=== PATIENT | male | born 1980 | race Caucasian/White ===

== ENCOUNTER 2022-07-25 17:57 | Outpatient (CLI) | payer MEDICAID | END 2022-07-25 17:58 | disposition EMS.NT | LOC: EMS 17:57 | DX: S01.21XA Laceration without foreign body of nose, initial encounter (principal); R04.0 Epistaxis; Y04.2XXA Assault by strike against or bumped into by another person, initial encounter; Y93.89 Activity, other specified; Y92.59 Other trade areas as the place of occurrence of the external cause ==

== ENCOUNTER 2022-07-26 16:04 | Emergency (ER) | payer MEDICAID ==
[2022-07-26 16:22] VITALS: BP 145/112
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
--- NOTE | 2022-07-26 17:25 | XRAY Report ---
PROCEDURE: Chest 1 View X-Ray INDICATIONS: right rib pain TECHNIQUE: One view of the chest was acquired. COMPARISON: None. FINDINGS: Surgical changes and devices: None. Lungs and pleura: No pleural effusions or pneumothorax. Lungs are clear. Mediastinum: Mediastinal contours appear normal. Heart size is normal. Bones and chest wall: No suspicious bony lesions. Overlying soft tissues appear unremarkable. IMPRESSION: Normal single view chest x-ray Reviewed by: Lowell Teresa MD on 07/26/2022 4:24 PM [facility] Approved by: Lowell Teresa MD on 07/26/2022 4:24 PM [facility] Station ID: [id number]
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
== END 2022-07-26 18:05 | disposition home or self-care (01) ==
LOC: ED 16:04
DX: S05.12XA Contusion of eyeball and orbital tissues, left eye, initial encounter (principal); S20.211A Contusion of right front wall of thorax, initial encounter; S02.2XXA Fracture of nasal bones, initial encounter for closed fracture; Y04.2XXA Assault by strike against or bumped into by another person, initial encounter
CPT/HCPCS: 99284

== ENCOUNTER 2023-11-12 10:25 | Outpatient (CLI) | payer MEDICAID ==
[2023-11-12 17:40] LABS: BASOPHILS # (AUTO) 0.1 10^3/uL (0.0-0.1); BASOPHILS % (AUTO) 0.7 %; EOSINOPHILS # (AUTO) 0.5 10^3/uL (0.0-0.7); EOSINOPHILS % (AUTO) 5.2 %; HCT - HEMATOCRIT 45.6 % (42.0-52.0); HGB - HEMOGLOBIN 15.7 g/dL (14.0-18.0); LYMPHOCYTES # (AUTO) 2.7 10^3/uL (1.5-3.5); MEAN CORPUSCULAR HEMOGLOBIN 32.3 pg (27.0-31.0); MEAN CORPUSCULAR HGB CONC 34.4 g/dL (32.0-36.0); MEAN CORPUSCULAR VOLUME 93.8 fL (80.0-94.0); MEAN PLATELET VOLUME 10.8 fL (7.4-11.4); MONOCYTES # (AUTO) 0.5 10^3/uL (0.0-1.0); MONOCYTES % (AUTO) 4.8 %; NEUTROPHILS # (AUTO) 5.8 10^3/uL (1.5-6.6); PLT - PLATELET COUNT 267 10^3/uL (130-450); RED BLOOD COUNT 4.86 10^6/uL (4.70-6.10); WHITE BLOOD COUNT 9.5 x10^3/uL (4.8-10.8)
[2023-11-12 18:04] LABS: ALBUMIN 4.9 g/dL (3.2-5.5); ALBUMIN/GLOBULIN RATIO 1.6 (1.0-2.2); BILIRUBIN,TOTAL 1.1 mg/dL (0.2-1.0); CREATININE 0.9 mg/dL (0.6-1.3); POTASSIUM 3.9 mmol/L (3.5-4.5); TOTAL PROTEIN 7.9 g/dL (6.4-8.9)
[2023-11-12 18:09] LABS: THYROID STIMULATING HORMONE 1.56 uIU/mL (0.34-5.60)
== END 2023-11-12 10:26 | disposition home or self-care (01) ==
LOC: LAB.N 10:25
PROVIDERS: ATTEND Nurse Practitioner
DX: F33.2 Major depressive disorder, recurrent severe without psychotic features (principal); F10.10 Alcohol abuse, uncomplicated
CPT/HCPCS: 36415; 80050; 84153; 84403